=== PATIENT | male | born 1990 | race Caucasian/White ===

== ENCOUNTER 2016-06-13 11:26 | Inpatient (IN) | payer OTHER ==
[2016-06-13 12:44] VITALS: BMI 24.7
--- NOTE | 2016-06-13 13:57 | HP ---
COWS - Scale Resting Pulse: 1= [place] 81-100 Sweatin=Flushed/Facial Moisture Restless Observation: 1= Difficult to Sit Still Pupil Size: 0= Normal to Room Light Bone or Joint Aches: 2= Severe Diffuse Aches Runny Nose/ Eye Tearin= Runny Nose/Eyes GI Upset > 30mins: 1= Stomach Cramp Tremor Observation: 2= Slight Tremor Visible Yawning Observation: 2= >3x During Session Anxiety or Irritability: 2=Irritable/Anxious Goose Flesh Skin: 3=Piloerection COWS Score: 18 Admission ROS S - HPI Chief Complaint: I need to stop and detox heroin. Allergies/Adverse Reactions: Allergies Allergy/AdvReac Type Severity Reaction Status Date / Time No Known Allergies Allergy Verified 06/13/16 13:50 History of Present Illness: pt is a 25yr old male with a history of heroin and crack/cocaine dependence seeking detox for treatment. Exam Limitations: No Limitations - Ebola screening Have you traveled outside of the country in the last 21 days: No Have you had contact with anyone from an Ebola affected area: No Have you been sick,other than usual withdrawal symptoms: No Do you have a fever: No - Review of Systems Constitutional: Diaphoresis, Night Sweats EENT: reports: Nose Congestion, Other (oral thrush) Respiratory: reports: No Symptoms reported Cardiac: reports: No Symptoms Reported GI: reports: Constipated, Diarrhea, Nausea, Poor Fluid Intake : reports: No Symptoms Reported Musculoskeletal: reports: No Symptoms Reported Integumentary: reports: Flushing, Sweating Neuro: reports: Tingling, Tremors Endocrine: reports: Excessive Sweating, Flushing, Intolerance to Cold, Intolerance to Heat Hematology: reports: No Symptoms Reported Psychiatric: reports: Judgement Intact, Mood/Affect Appropiate, Orientated x3, Agitated, Anxious Other Systems: Reviewed and Negative Patient History - Patient Medical History Hx Anemia: No Hx Asthma: No Hx Chronic Obstructive Pulmonary Disease (COPD): No Hx Cancer: No Hx Cardiac Disorders: No Hx Congestive Heart Failure: No Hx Hypertension: No Hx Hypercholesterolemia: No Hx Pacemaker: No HX Cerebrovascular Accident: No Hx Seizures: No Hx Dementia: No Hx Diabetes: No Hx Gastrointestinal Disorders: No Hx Liver Disease: No Hx Genitourinary Disorders: No Hx Sexually Transmitted Disorders: No Hx Renal Disease (ESRD): No Hx Thyroid Disease: No Hx Human Immunodeficiency Virus (HIV): No (negative) Hx Hepatitis C: No (negative) Hx Depression: No Hx Suicide Attempt: No (denies) Hx Bipolar Disorder: No Hx Schizophrenia: No - Patient Surgical History Past Surgical History: No Hx Neurologic Surgery: No Hx Cataract Extraction: No Hx Cardiac Surgery: No Hx Lung Surgery: No Hx Breast Surgery: No Hx Breast Biopsy: No Hx Abdominal Surgery: No Hx Appendectomy: No Hx Cholecystectomy: No Hx Genitourinary Surgery: No Hx Section: No Hx Orthopedic Surgery: No Anesthesia Reaction: No - PPD History Previous Implant?: Yes Documented Results: Negative w/o proof PPD to be Administered?: Yes - Reproductive History Patient is a Female of Child Bearing Age (11 -55 yrs old): No - Smoking Cessation Smoking history: Current every day smoker Have you smoked in the past 12 months: Yes Aproximately how many cigarettes per day: 20 Hx Chewing Tobacco Use: No Initiated information on smoking cessation: Yes 'Breaking Loose' booklet given: 06/13/16 - Substance & Tx. History Hx Alcohol Use: No Hx Substance Use: Yes Substance Use Type: Cocaine, Heroin - Substances Abused Heroin Route: Injection Frequency: Daily Amount used: 20 bags Age of first use: 20 Date of Last Use: 06/12/16 Crack Route: Smoking Frequency: Daily Amount used: $50 Age of first use: 25 Date of Last Use: 06/12/16 Family Disease History - Family Disease History Family Disease History: Diabetes: Mother (?HTN), Other: Mother Admission Physical Exam BHS - Vital Signs Vital Signs: Vital Signs - 24 hr 06/13/16 12:39 Temperature 97.5 F L Pulse Rate 90 Respiratory 20 Rate Blood Pressure 133/81 - Physical General Appearance: Yes: Within Normal Limits, Moderate Distress, Tremorous, Irritable, Sweating, Anxious HEENTM: Yes: Nasal Congestion, Rhinorrhea, Thrush Respiratory: Yes: Lungs Clear, Normal Breath Sounds, No Respiratory Distress Neck: Yes: No masses,lesions,Nodules Breast: Yes: Within Normal Limits Cardiology: Yes: Regular Rhythm, Regular Rate, S1, S2, Tachycardia Abdominal: Yes: Non Tender, Soft Genitourinary: Yes: Within Normal Limits Back: Yes: Normal Inspection Musculoskeletal: Yes: full range of Motion, Back pain Extremities: Yes: Normal Inspection, Tremors Neurological: Yes: Fully Oriented, Alert, Normal Response Integumentary: Yes: Normal Color, Diaphoresis, Track M[place] Lymphatic: Yes: Within Normal Limits - Diagnostic (1) Nicotine dependence Current Visit: Yes Status: Chronic Qualifiers: Nicotine product type: cigarettes Substance use status: uncomplicated Qualified Code(s): F17.210 - Nicotine dependence, cigarettes, uncomplicated (2) Opioid dependence with withdrawal Current Visit: Yes Status: Chronic (3) Oral thrush Current Visit: Yes Status: Acute (4) Crack cocaine use Current Visit: Yes Status: Chronic Cleared for Admission [facility] - Detox or Rehab [facility] Level of Care: Medically Managed Detox Regimen/Protocol: Methadone [facility] Breath Alcohol Content Breath Alcohol Content: 0 Urine Drug Screen - Results Drug Screen Negative: No Urine Drug Screen Results: LEILA-Cocaine, OPI-Opiates
[2016-06-13] MEDS ORDERED: P-EPHED 60MG/TRIPROLIDI 2.5MG TABLET PO PRN (14:06)
[2016-06-13] MEDS ORDERED: MAG HYDROX/AL HYDROX/SIMETH 30 ML UNIT-DOSE CUP PO PRN (14:06)
[2016-06-13] MEDS ORDERED: MAGNESIUM HYDROX 2400MG/30ML ORAL SUSPENSION 30 ML CUP PO PRN (14:06)
[2016-06-13] MEDS ORDERED: ACETAMINOPHEN 325 MG TABLET (FP) PO PRN (14:06)
[2016-06-13] MEDS ORDERED: LOPERAMIDE HCL 2 MG CAPSULE PO PRN (14:06)
[2016-06-13] MEDS ORDERED: MENTHOL/PHENOL 1 EACH UD MM PRN (14:06)
[2016-06-13] MEDS ORDERED: MAGNESIUM CITRATE 300 ML BOTTLE PO PRN (14:06)
[2016-06-13] MEDS ORDERED: hydrOXYzine PAMOATE 50 MG CAPSULE (FP) PO PRN (14:06)
[2016-06-13] MEDS ORDERED: guaiFENesin/D-METHORPHAN HB 10 ML UNIT-DOSE CUPS PO PRN (14:06)
[2016-06-13] MEDS ORDERED: IBUPROFEN 400 MG TABLET (FP) PO PRN (14:06)
[2016-06-13] MEDS ORDERED: METHADONE HCL 10 MG TABLET (FOR DETOX USE ONLY) PO ONE ×2 (14:45→23:00)
[2016-06-13] MEDS: diazePAM 5 MG TABLET PO PRN ×2 (15:28→19:48)
[2016-06-13 16:47] LABS: URINE APPEARANCE CLEAR; URINE BILIRUBIN NEGATIVE (NEGATIVE); URINE BLOOD NEGATIVE (NEGATIVE); URINE COLOR YELLOW; URINE GLUCOSE (UA) NEGATIVE (NEGATIVE); URINE KETONE NEGATIVE (NEGATIVE); URINE LEUK ESTERASE NEGATIVE (NEGATIVE); URINE NITRITE NEGATIVE (NEGATIVE); URINE PROTEIN NEGATIVE (NEGATIVE); URINE UROBILINOGEN NEGATIVE E.U./dl (0.2-1.0)
[2016-06-13] MEDS: NICOTINE POLACRILEX 4 MG GUM BC PRN ×3 (17:22→22:47)
[2016-06-13] MEDS: CLOTRIMAZOLE 10 MG TROCHE (FP) PO SCH ×2 (19:24→22:11)
[2016-06-13] MEDS: THIAMINE HCL 100 MG TABLET (FP) PO SCH (22:11)
[2016-06-13] MEDS: diphenhydrAMINE HCL 50 MG CAPSULE PO PRN (22:11)
[2016-06-13] MEDS ORDERED: LIDOCAINE VISCOUS 2% ORAL/TOP 100 ML BOTTLE MM PRN (23:31)
[2016-06-14] MEDS: CLOTRIMAZOLE 10 MG TROCHE (FP) PO SCH ×5 (06:50→22:46)
[2016-06-14] MEDS ORDERED: METHADONE HCL 10 MG TABLET (FOR DETOX USE ONLY) PO ONE (10:00)
[2016-06-14 10:24] LABS: MCH 29.3 pg (25.7-33.7); MCHC 33.3 g/dl (32.0-35.9); MEAN CELL VOLUME 88.1 fl (80-96); MEAN PLT VOLUME 9.3 fl (7.5-11.1); PLATELET COUNT 225 K/MM3 (134-434); RDW 12.6 % (11.9-15.9); WHITE BLOOD COUNT 11.4 K/mm3 (4.0-10.0)
[2016-06-14] MEDS: NICOTINE 21 MG/24 HOURS TOPICAL PATCH TD SCH (10:52)
[2016-06-14] MEDS: PRENATAL VITAMINS W/ FOLIC ACID TABLET (FP) PO SCH (10:53)
[2016-06-14] MEDS: NICOTINE POLACRILEX 4 MG GUM BC PRN ×2 (10:56→22:50)
[2016-06-14 11:00] LABS: ANION GAP 9 (8-16); CALCIUM 8.8 mg/dL (8.5-10.1); CO2 32 mmol/L (21-32); GLUCOSE,RANDOM 80 mg/dL (74-106)
[2016-06-14 11:04] LABS: ALK PHOS 72 U/L (45-117); BILIRUBIN,TOTAL 0.3 mg/dL (0.2-1.0); CREATININE 0.8 mg/dL (0.7-1.3); SGOT/AST 17 U/L (15-37); SGPT/ALT 26 U/L (12-78); TOT PROT 7.2 g/dl (6.4-8.2)
--- NOTE | 2016-06-14 11:26 | PN ---
S COWS - Scale Resting Pulse: 0= [place] 80 or Below Sweatin= Chills/Flushing Restless Observation: 3= Extraneous Movement Pupil Size: 1= Pupils >than Normal Bone or Joint Aches: 2= Severe Diffuse Aches Runny Nose/ Eye Tearin= Runny Nose/Eyes GI Upset > 30mins: 3= Vomiting/Diarrhea Tremor Observation of Outstretched Hands: 2= Slight Tremor Visible Yawning Observation: 1= 1-2x During Session Anxiety or Irritability: 2=Irritable/Anxious Goose Flesh Skin: 0=Smooth Skin COWS Score: 17 S Progress Note (SOAP) Subjective: ALERT,IRRITABLE,ANXIOUS,INTERRUPTED SLEEP,TREMOR,PAIN IN THE BODY AND BACK Objective: 06/14/16 11:24 Vital Signs Temperature 97 F L 06/14/16 09:56 Pulse Rate 74 06/14/16 09:56 Respiratory Rate 20 06/14/16 09:56 Blood Pressure 120/78 06/14/16 09:56 O2 Sat by Pulse Oximetry (%) EKG NSR,NORMLA ECG Laboratory Last Values WBC 11.4 K/mm3 (4.0-10.0) H 06/14/16 06:00 RBC 4.48 M/mm3 (4.00-5.60) 06/14/16 06:00 Hgb 13.1 GM/dL (11.7-16.9) D 06/14/16 06:00 Hct 39.5 % (35.4-49) 06/14/16 06:00 MCV 88.1 fl (80-96) 06/14/16 06:00 MCHC 33.3 g/dl (32.0-35.9) 06/14/16 06:00 RDW 12.6 % (11.9-15.9) 06/14/16 06:00 Plt Count 225 K/MM3 (134-434) D 06/14/16 06:00 MPV 9.3 fl (7.5-11.1) 06/14/16 06:00 Urine Color Yellow 06/13/16 13:00 Urine Appearance Clear 06/13/16 13:00 Urine pH 5.0 (5.0-8.0) D 06/13/16 13:00 Ur Specific [place] 1.026 (1.001-1.035) 06/13/16 13:00 Urine Protein Negative (NEGATIVE) 06/13/16 13:00 Urine Glucose (UA) Negative (NEGATIVE) 06/13/16 13:00 Urine Ketones Negative (NEGATIVE) 06/13/16 13:00 Urine Blood Negative (NEGATIVE) 06/13/16 13:00 Urine Nitrite Negative (NEGATIVE) 06/13/16 13:00 Urine Bilirubin Negative (NEGATIVE) 06/13/16 13:00 Urine Urobilinogen Negative E.U./dl (0.2-1.0) 06/13/16 13:00 Ur Leukocyte Esterase Negative (NEGATIVE) 06/13/16 13:00 LABS PENDING Assessment: 06/14/16 11:25 WITHDRAWAL SYMPTOM Plan: CONTINUE DETOX,ENCOURAGE ORAL FLUID
--- NOTE | 2016-06-14 12:29 | EKG ---
Test Reason : Blood Pressure : / mmHG Vent. Rate : 086 BPM Atrial Rate : 086 BPM P-R Int : 148 ms QRS Dur : 084 ms QT Int : 354 ms P-R-T Axes : 071 059 020 degrees QTc Int : 423 ms NORMAL SINUS RHYTHM NORMAL ECG NO PREVIOUS ECGS AVAILABLE Confirmed by LEVAR MERRILL MD ([id number]) on 06/14/2016 12:29:03 PM Referred By: Confirmed By:LEVAR MERRILL MD
[2016-06-14] MEDS: diazePAM 5 MG TABLET PO PRN (22:46)
[2016-06-14] MEDS: THIAMINE HCL 100 MG TABLET (FP) PO SCH (22:47)
[2016-06-15] MEDS: CLOTRIMAZOLE 10 MG TROCHE (FP) PO SCH ×5 (06:05→22:46)
[2016-06-15] MEDS ORDERED: METHADONE HCL 5 MG TABLET (FOR DETOX USE ONLY) PO ONE (10:00)
[2016-06-15] MEDS: PRENATAL VITAMINS W/ FOLIC ACID TABLET (FP) PO SCH (10:24)
[2016-06-15] MEDS: NICOTINE 21 MG/24 HOURS TOPICAL PATCH TD SCH (10:25)
[2016-06-15] MEDS: NICOTINE POLACRILEX 4 MG GUM BC PRN ×2 (10:28→19:00)
--- NOTE | 2016-06-15 12:03 | PN ---
BHS COWS - Scale Resting Pulse: 1= [place] 81-100 Sweatin= Chills/Flushing Restless Observation: 3= Extraneous Movement Pupil Size: 1= Pupils >than Normal Bone or Joint Aches: 2= Severe Diffuse Aches Runny Nose/ Eye Tearin= Runny Nose/Eyes GI Upset > 30mins: 3= Vomiting/Diarrhea Tremor Observation of Outstretched Hands: 2= Slight Tremor Visible Yawning Observation: 1= 1-2x During Session Anxiety or Irritability: 2=Irritable/Anxious Goose Flesh Skin: 0=Smooth Skin COWS Score: 18 BHS Progress Note (SOAP) Subjective: ALERT,IRRITABLE,ANXIOUS,INTERRUPTED SLEEP,PAIN IN THE BODY AND BACK Objective: 06/15/16 12:01 Vital Signs Temperature 97.9 F 06/15/16 10:44 Pulse Rate 86 06/15/16 10:44 Respiratory Rate 16 06/15/16 10:44 Blood Pressure 98/58 06/15/16 10:44 O2 Sat by Pulse Oximetry (%) Laboratory Last Values WBC 11.4 K/mm3 (4.0-10.0) H 06/14/16 06:00 RBC 4.48 M/mm3 (4.00-5.60) 06/14/16 06:00 Hgb 13.1 GM/dL (11.7-16.9) D 06/14/16 06:00 Hct 39.5 % (35.4-49) 06/14/16 06:00 MCV 88.1 fl (80-96) 06/14/16 06:00 MCHC 33.3 g/dl (32.0-35.9) 06/14/16 06:00 RDW 12.6 % (11.9-15.9) 06/14/16 06:00 Plt Count 225 K/MM3 (134-434) D 06/14/16 06:00 MPV 9.3 fl (7.5-11.1) 06/14/16 06:00 Sodium 137 mmol/L (136-145) 06/14/16 06:00 Potassium 3.6 mmol/L (3.5-5.1) D 06/14/16 06:00 Chloride 96 mmol/L (98-107) L 06/14/16 06:00 Carbon Dioxide 32 mmol/L (21-32) 06/14/16 06:00 Anion Gap 9 (8-16) 06/14/16 06:00 BUN 14 mg/dL (7-18) D 06/14/16 06:00 Creatinine 0.8 mg/dL (0.7-1.3) 06/14/16 06:00 Creat Clearance w eGFR > 60 (>60) 06/14/16 06:00 Random Glucose 80 mg/dL (74-106) 06/14/16 06:00 Calcium 8.8 mg/dL (8.5-10.1) 06/14/16 06:00 Total Bilirubin 0.3 mg/dL (0.2-1.0) 06/14/16 06:00 AST 17 U/L (15-37) D 06/14/16 06:00 ALT 26 U/L (12-78) D 06/14/16 06:00 Alkaline Phosphatase 72 U/L (45-117) 06/14/16 06:00 Total Protein 7.2 g/dl (6.4-8.2) 06/14/16 06:00 Albumin 4.0 g/dl (3.4-5.0) 06/14/16 06:00 Urine Color Yellow 06/13/16 13:00 Urine Appearance Clear 06/13/16 13:00 Urine pH 5.0 (5.0-8.0) D 06/13/16 13:00 Ur Specific [place] 1.026 (1.001-1.035) 06/13/16 13:00 Urine Protein Negative (NEGATIVE) 06/13/16 13:00 Urine Glucose (UA) Negative (NEGATIVE) 06/13/16 13:00 Urine Ketones Negative (NEGATIVE) 06/13/16 13:00 Urine Blood Negative (NEGATIVE) 06/13/16 13:00 Urine Nitrite Negative (NEGATIVE) 06/13/16 13:00 Urine Bilirubin Negative (NEGATIVE) 06/13/16 13:00 Urine Urobilinogen Negative E.U./dl (0.2-1.0) 06/13/16 13:00 Ur Leukocyte Esterase Negative (NEGATIVE) 06/13/16 13:00 RPR Titer Nonreactive (NONREACTIVE) 06/14/16 06:00 Assessment: 06/15/16 12:02 WITHDRAWAL SYMPTOM Plan: CONTINUE DETOX,FLUID ENCOURAGEMENT
[2016-06-15] MEDS: diazePAM 5 MG TABLET PO PRN ×2 (15:11→22:44)
[2016-06-15] MEDS: THIAMINE HCL 100 MG TABLET (FP) PO SCH (22:44)
[2016-06-15] MEDS: diphenhydrAMINE HCL 50 MG CAPSULE PO PRN (22:45)
[2016-06-16] MEDS: CLOTRIMAZOLE 10 MG TROCHE (FP) PO SCH ×5 (05:29→22:57)
[2016-06-16] MEDS: diazePAM 5 MG TABLET PO PRN (05:31)
[2016-06-16] MEDS: NICOTINE POLACRILEX 4 MG GUM BC PRN ×4 (05:32→23:21)
[2016-06-16] MEDS ORDERED: METHADONE HCL 5 MG TABLET (FOR DETOX USE ONLY) PO ONE (10:00)
[2016-06-16] MEDS ORDERED: METHADONE HCL 10 MG TABLET (FOR DETOX USE ONLY) PO ONE (10:45)
[2016-06-16] MEDS: PRENATAL VITAMINS W/ FOLIC ACID TABLET (FP) PO SCH (11:05)
[2016-06-16] MEDS: NICOTINE 21 MG/24 HOURS TOPICAL PATCH TD SCH (11:06)
--- NOTE | 2016-06-16 11:52 | PN ---
BHS Progress Note (SOAP) Subjective: sweats, but feeling better wants to leave early Objective: 06/16/16 11:49 Vital Signs Temperature 98.2 F 06/16/16 11:19 Pulse Rate 95 H 06/16/16 11:19 Respiratory Rate 20 06/16/16 11:19 Blood Pressure 149/66 06/16/16 11:19 O2 Sat by Pulse Oximetry (%) Laboratory Tests 06/13/16 06/14/16 06/14/16 13:00 06:00 06:00 WBC 11.4 H RBC 4.48 Hgb 13.1 D Hct 39.5 MCV 88.1 MCHC 33.3 RDW 12.6 Plt Count 225 D MPV 9.3 Sodium 137 Potassium 3.6 D Chloride 96 L Carbon Dioxide 32 Anion Gap 9 BUN 14 D Creatinine 0.8 Creat Clearance w eGFR > 60 Random Glucose 80 Calcium 8.8 Total Bilirubin 0.3 AST 17 D ALT 26 D Alkaline Phosphatase 72 Total Protein 7.2 Albumin 4.0 Urine Color Yellow Urine Appearance Clear Urine pH 5.0 D Ur Specific [place] 1.026 Urine Protein Negative Urine Glucose (UA) Negative Urine Ketones Negative Urine Blood Negative Urine Nitrite Negative Urine Bilirubin Negative Urine Urobilinogen Negative Ur Leukocyte Esterase Negative RPR Titer 06/14/16 06:00 WBC RBC Hgb Hct MCV MCHC RDW Plt Count MPV Sodium Potassium Chloride Carbon Dioxide Anion Gap BUN Creatinine Creat Clearance w eGFR Random Glucose Calcium Total Bilirubin AST ALT Alkaline Phosphatase Total Protein Albumin Urine Color Urine Appearance Urine pH Ur Specific [place] Urine Protein Urine Glucose (UA) Urine Ketones Urine Blood Urine Nitrite Urine Bilirubin Urine Urobilinogen Ur Leukocyte Esterase RPR Titer Nonreactive pt aox3 in nad ambulating Assessment: 06/16/16 11:49 withdrawal sx's pt detox regimen changed Plan: cont. detox increase fluids d/c in am methadone 10mg today methadone 5mg today
[2016-06-16] MEDS: THIAMINE HCL 100 MG TABLET (FP) PO SCH (22:57)
[2016-06-16] MEDS: diphenhydrAMINE HCL 50 MG CAPSULE PO PRN (22:57)
[2016-06-17] MEDS: diphenhydrAMINE HCL 50 MG CAPSULE PO PRN (00:29)
[2016-06-17] MEDS: CLOTRIMAZOLE 10 MG TROCHE (FP) PO SCH ×2 (05:18→09:12)
[2016-06-17] MEDS ORDERED: METHADONE HCL 5 MG TABLET (FOR DETOX USE ONLY) PO ONE (06:00)
[2016-06-17 06:23] VITALS: BP 120/75; PULSE 65; TEMP 98
--- NOTE | 2016-06-17 08:38 | DS ---
[facility] Detox Discharge Summary Admission Date: 06/13/16 Discharge Date: 06/17/16 - History Present History: Cocaine Dependence, Opioid Dependence - Physical Exam Results Vital Signs: Vital Signs Temperature 98 F 06/17/16 06:22 Pulse Rate 65 06/17/16 06:22 Respiratory Rate 16 06/17/16 06:22 Blood Pressure 120/75 06/17/16 06:22 O2 Sat by Pulse Oximetry (%) - Treatment Hospital Course: Detox Protocol Followed, Detoxed Safely, Responded well, Discharged Condition Good, Rehab Referral Accepted - Medication Discharge Medications: Ambulatory Orders NK [No Known Home Medication] 04/18/14 - Diagnosis (1) Nicotine dependence Current Visit: Yes Status: Chronic Qualifiers: Nicotine product type: cigarettes Substance use status: uncomplicated Qualified Code(s): F17.210 - Nicotine dependence, cigarettes, uncomplicated (2) Opioid dependence with withdrawal Current Visit: Yes Status: Chronic (3) Oral thrush Current Visit: Yes Status: Resolved (4) Crack cocaine use Current Visit: Yes Status: Chronic - AMA Did Patient Leave Against Medical Advice: No
[2016-06-17] MEDS: PRENATAL VITAMINS W/ FOLIC ACID TABLET (FP) PO SCH (09:12)
[2016-06-17] MEDS ORDERED: METHADONE HCL 10 MG TABLET (FOR DETOX USE ONLY) PO ONE (10:00)
[2016-06-18] MEDS ORDERED: METHADONE HCL 5 MG TABLET (FOR DETOX USE ONLY) PO ONE (06:00)
== END 2016-06-17 09:39 | disposition home or self-care (01) | DRG 773 ==
LOC: YASAS 11:26 → Y6N 14:30
PROVIDERS: ADMIT Internal Medicine; ATTEND Internal Medicine
PROC: HZ2ZZZZ Detoxification Services for Substance Abuse Treatment (ICD-10-PCS; principal; 2016-06-17)
DX: F11.23 Opioid dependence with withdrawal (principal); F10.230 Alcohol dependence with withdrawal, uncomplicated; F14.10 Cocaine abuse, uncomplicated; F17.210 Nicotine dependence, cigarettes, uncomplicated; B37.0 Candidal stomatitis
CPT/HCPCS: 36415; 80053; 81003; 85027; 86593; 93005; 93010